=== PATIENT | female | born 1965 | race Caucasian/White ===

== ENCOUNTER 2019-03-29 19:16 | Emergency (ER) | payer OTHER ==
[~2019-03-29] VITALS: Ht 172.7 cm; Wt 68.0 kg
[2019-03-29 19:35] VITALS: BP 168/93
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
--- NOTE | 2019-03-29 20:03 | NUR ---
SEEN AND EXAMINED BY KIAH FERRERA
[2019-03-29] MEDS ORDERED: CYCLOBENZAPRINE 10 MG TABLET ONE (20:07)
[2019-03-29] MEDS ORDERED: IBUPROFEN 600 MG TABLET PO ONE ×2 (20:07→20:30)
--- NOTE | 2019-03-29 20:09 | NUR ---
CABLE OPERATOR AT BEDSIDE FOR XRAY.
[2019-03-29] MEDS ORDERED: CYCLOBENZAPRINE 10 MG TABLET PO ONE (20:30)
--- NOTE | 2019-03-29 21:53 | NUR ---
Patient discharged to home in stable condition. Written and verbal after care instructions given. Patient verbalizes understanding of instruction.
== END 2019-03-29 21:56 | disposition home or self-care (01) ==
LOC: ER 19:23
DX: S16.1XXA Strain of muscle, fascia and tendon at neck level, initial encounter (principal); S40.022A Contusion of left upper arm, initial encounter; Z90.710 Acquired absence of both cervix and uterus; W01.0XXA Fall on same level from slipping, tripping and stumbling without subsequent striking against object, initial encounter; Y93.89 Activity, other specified; Y92.89 Other specified places as the place of occurrence of the external cause; Y99.8 Other external cause status
CPT/HCPCS: 73060-TC